=== PATIENT | male | born 1965 | race Caucasian/White ===

== ENCOUNTER → 2016-12-23 | Outpatient (CLI) | payer OTHER ==
[~2016-12-23] MED LIST: ACETAMINOPHEN PO; COMBIVENT RESPIM4 GM INH; LEVAQUIN PO; MEDROL DOSEPAK4 MG PO; MUCINEX DM ER1 EACH PO
--- NOTE | ~2016-12-23 | CT55 ---
[facility] A Service of [facility] & [facility] RADIOLOGY TEXT RESULTS PATIENT: JOSE DAY LOCATION: [facility] : 67 UNIT #: [id number] AGE: [address]: Owen Manning MD SEX: M ORDER DR: [id number] [facility]. [place], [place] [address] [id number] O MR#: [id number] Acc #: [id number] NAME: JOSE DAY : 1965 SEX: M STUDY DATE/TIME: 12/23/2016 09:18 UNIT: [facility] ROOM: STUDY DESCRIPTION: CT Chest W Con Attending Physician: Owen Manning M.D. Referring Physician: Owen Manning M.D. Ordering Physician: Owen Manning M.D. Primary Care Physician: Elizabeth Delarosa Aprn MEDICAL IMAGING REPORT This report is preliminary unless electronic signature is present EXAM CT chest with contrast 12/23/2016 09:18 hours HISTORY 51-year-old with diagnosis of right lung cancer. Patient has received interval radiation and chemotherapy for restaging. Observation for suspected malignant neoplasm. COMPARISON PET CT 08/28/[address] chest 08/21/[address] images were obtained from the lung apices through the adrenal glands with contrast. Sagittal and coronal reconstructions were performed. Contrast was Isovue-370 70 mL IV. Total exam DLP 776 mGy-cm. This CT exam was performed with one or more of the following radiation dose reduction techniques: automatic exposure control, adjustment of mA and/or kV according to patient size, and iterative reconstruction. FINDINGS Images through the thoracic inlet are normal. Images through the chest demonstrate significant interval improvement. The large right upper lobe lateral lung mass has decreased in size now measuring 4.0 x 3.4 x 3.9 cm, previously 4.3 x 3.9 x 5.4 cm. This abuts the lateral pleura and likely involves the pleura. There is resolution of the airspace change in the right middle lobe and right lower lobe which was likely postobstructive pneumonitis. There is marked decrease in the bulky adenopathy in the right paratracheal and right hilar region. Right paratracheal node now measures 2.7 x 2.3 cm, previously 5.1 x 3.5 cm. Right hilar mass now measures 1.8 x 1.9 cm, previously 4.2 x 4.8 cm. Right infrahilar node now measures 0.7 cm [facility] A Service of [facility] RADIOLOGY TEXT RESULTS PATIENT: JOSE DAY LOCATION: [facility] : 67 UNIT #: [id number] AGE: [address]: Owen Manning MD SEX: M ORDER DR: previously 2.7 cm. There is no pleural fluid. Limited views through the upper abdomen demonstrate no liver lesion. The left adrenal gland is normal. The low-density rim calcified right adrenal lesion is stable and felt likely benign. Right upper pole renal cyst is noted. Bone window images again demonstrate underlying scoliosis with endplate degenerative changes. There is no lytic or blastic lesions seen. IMPRESSION 1. Significant interval positive response to therapy. The peripheral mass in the right upper lobe now measures 4.0 x 3.3 x 3.9 cm, previously 4.3 x 3.9 x 5.4 cm. The previous bulky right paratracheal, right hilar adenopathy/mass have decreased significantly in size with resolution of the airspace changes from the right middle lobe and lower lobe with resolution of mass effect on the right mainstem bronchus. 2. No new pulmonary nodules or pleural effusions. 3. Stable rim calcified benign appearing right adrenal lesion. There is no liver or adrenal metastasis seen. 4. Right upper pole renal cyst. 5. Thoracic scoliosis with secondary endplate degenerative changes. No lytic or blastic bone lesions. Dictated by... Elena Mcdonald M.D. THIS IS AN ELECTRONICALLY VERIFIED REPORT Elena Mcdonald M.D. at 12/23/2016 2:29 PM Autumn TD: 12/23/2016 13:18 JOB #: [id number] MEDICAL IMAGING REPORT COPY
[2016-12-23 15:42] LABS: POC - CREATININE 0.75 mg/dL (0.64-1.27); POC - GFR >60.0 mL/min (>60)
== END | disposition home or self-care (01) ==
LOC: CCAT 08:44
PROVIDERS: Internal Medicine Medical Oncology
DX: C34.01 Malignant neoplasm of right main bronchus (principal); R91.8 Other nonspecific abnormal finding of lung field; E27.8 Other specified disorders of adrenal gland; N28.1 Cyst of kidney, acquired; M41.9 Scoliosis, unspecified; M47.814 Spondylosis without myelopathy or radiculopathy, thoracic region
CPT/HCPCS: 71260; 82565; Q9967

== ENCOUNTER → 2017-03-19 | Outpatient (CLI) | payer OTHER ==
--- NOTE | ~2017-03-19 | CT55 ---
[facility] A Service of [facility] & [facility] RADIOLOGY TEXT RESULTS PATIENT: JOSE DAY [facility] UNIT #: [id number] AGE: [address]: Owen Manning MD SEX: M ORDER DR: [id number] [place], [place] [address] [id number] O MR#: [id number] Acc #: [id number] NAME: JOSE DAY : 1965 SEX: M STUDY DATE/TIME: 03/19/2017 7:51 UNIT: [facility] ROOM: STUDY DESCRIPTION: CT Chest W Con Attending Physician: Owen Manning M.D. Ordering Physician: Owen Manning M.D. Primary Care Physician: Elizabeth Delarosa Aprn MEDICAL IMAGING REPORT This report is preliminary unless electronic signature is present EXAM CT chest with contrast Date: 03/19/2017 HISTORY Physician's order states malignant neoplasm of right main bronchus. Patient's history states followup lung cancer, no current complaints. Patient states last chemotherapy treatments and radiation therapy treatments November 2016. Observation metastatic disease. Restaging. COMPARISON CT chest with contrast 12/23/2016. PET/CT 01/21/2017. TECHNIQUE This CT exam was performed with one or more of the following radiation dose reduction techniques: automatic exposure control, adjustment of mA and/or kV according to patient size, and iterative reconstruction. FINDINGS Peripheral noncalcified right upper lobe lung mass abutting the lateral pleural margin is again seen. It measures about 3.9 x 3.5 cm in the axial plane compared 4.0 x 3.5 cm on the previous study. It appears slightly changed in morphology since prior exam in the axial plane. However, in the coronal plane, it is significantly diminished in size, now measuring 3 cm compared to 3.9 meters on 12/23/2016. There is new or increased dense alveolar disease change within the right upper lobe extending from the margin of the right upper lobe lung mass, toward the right hilum, and involving the superior segment right lower lobe. Findings are favored to represent changes of radiation pneumonitis STS. [facility] A Service of [facility] & [facility] RADIOLOGY TEXT RESULTS PATIENT: JOSE DAY LOCATION: [facility] : 67 UNIT #: [id number] AGE: [address]: Owen Manning MD SEX: M ORDER DR: or evolving fibrosis. Mediastinal adenopathy is slightly diminished. A right lower paratracheal liz aggregate measures 1.4 cm in thickness compared to 2 cm on 12/23/2016. 1.5 cm thickness right anterior hilar lymph node appears stable since prior exam. No new adenopathy is seen. Left lung is free of consolidation. No suspicious left lung nodules identified. There is chronic band-like scarring in the left lower lobe. No pericardial effusion or pleural effusion is seen. No supraclavicular or axillary adenopathy is evident. Left chest wall shruthi catheter extends to the SVC. Densely peripherally calcified 3.4 cm low-density right adrenal nodule is unchanged, thought to be benign. Complex cystic lesion in the right upper renal pole measuring 2.6 meters with eccentric calcification versus nonobstructing right renal stone, unchanged. Left adrenal gland and left kidney are unremarkable. Remainder included upper abdominal organs are normal. There is a mild S-shaped scoliotic curvature within the spine, but no suspicious osteolytic or osteoblastic abnormalities are identified. IMPRESSION 1. Findings consistent with positive response to therapy in comparison to 12/23/2016 examination. The right upper lobe lung mass has diminished in size, particularly in the coronal plane. The right paratracheal adenopathy has diminished, as well. 2. New or increasing dense airspace disease and special consolidative changes in the right upper lobe and within the superior segment right lower lobe, favored to represent postradiation pneumonitis or evolving fibrosis. 3. Stable benign appearing 3.4 cm peripherally calcified right adrenal nodule. 4. Stable 2.6 cm mildly complex right renal cystic lesion. 5. Thoracolumbar scoliosis. No suspicious osseous lesions. Dictated by... Kailey Madrid M.D. THIS IS AN ELECTRONICALLY VERIFIED REPORT Kailey Madrid M.D. at 03/19/2017 4:35 PM [facility]/dave TD: 03/19/2017 12:52 JOB #: [id number] [facility] A Service of [facility] RADIOLOGY TEXT RESULTS PATIENT: JOSE DAY LOCATION: [facility] : 67 UNIT #: [id number] AGE: [address]: Owen Manning MD SEX: M ORDER DR: MEDICAL IMAGING REPORT Page 1 of 1 COPY
[2017-03-19 08:26] LABS: POC - CREATININE 0.69 mg/dL (0.64-1.27); POC - GFR >60.0 mL/min (>60)
== END | disposition home or self-care (01) ==
LOC: CCAT 07:07
PROVIDERS: Internal Medicine Medical Oncology
DX: C34.01 Malignant neoplasm of right main bronchus (principal); R59.0 Localized enlarged lymph nodes; E27.8 Other specified disorders of adrenal gland; N28.89 Other specified disorders of kidney and ureter; M41.9 Scoliosis, unspecified; Z92.3 Personal history of irradiation; Z92.21 Personal history of antineoplastic chemotherapy
CPT/HCPCS: 71260; 82565; Q9967

== ENCOUNTER → 2017-06-22 | Outpatient (CLI) | payer OTHER ==
--- NOTE | ~2017-06-22 | CT55 ---
[facility] A Service of [facility] & [facility] RADIOLOGY TEXT RESULTS PATIENT: JOSE DAY LOCATION: [facility] : 67 UNIT #: [id number] AGE: [address]: Owen Manning MD SEX: M ORDER DR: [id number] [facility]. [place], [place] [address] [id number] O MR#: [id number] Acc #: [id number] NAME: JOSE DAY : 1965 SEX: M STUDY DATE/TIME: 06/22/2017 9:27 UNIT: [facility] ROOM: STUDY DESCRIPTION: CT Chest W Con Attending Physician: Owen Manning M.D. Referring Physician: Owen Manning M.D. Ordering Physician: Owen Manning M.D. Primary Care Physician: Willie SharmaPStellaRAnabel MEDICAL IMAGING REPORT This report is preliminary unless electronic signature is present EXAM CT chest. INDICATIONS Limited neoplasm of the right upper lobe. Restaging. Observation for metastatic disease. TECHNIQUE CT of the chest utilizing 70 mL Isovue-370 IV contrast. Coronal and sagittal reconstructions were obtained. This CT exam was performed with one or more of the following radiation dose reduction techniques: automatic exposure control, adjustment of mA and/or kV according to patient size, and iterative reconstruction. COMPARISON CT chest, 03/19/2017. FINDINGS There is an area of architectural distortion and bronchiectasis in the right upper lobe consistent with prior radiation therapy. A loculated low-attenuation fluid collection in the periphery of the right upper lobe has decreased from the prior exam. This area measures 2.9 x 3.8 cm compared to 3.9 x 3.5 cm previously. There is no new pulmonary opacities. Some soft tissue thickening along the right bronchus measures up to 1.2 cm compared to 1.4 cm previously. This should be closely followed. No new mediastinal or hilar lymph nodes. No pericardial or pleural effusion. There is no new pulmonary opacities. There is some linear atelectasis/scarring in the left lung base. Left hemidiaphragm is slightly elevated. Limited images of the upper abdomen were obtained. There is a peripherally calcified low-attenuation lesion in the right adrenal gland. [facility] A Service of [facility] & [facility] RADIOLOGY TEXT RESULTS PATIENT: JOSE DAY LOCATION: [facility] : 67 UNIT #: [id number] AGE: [address]: Owen Manning MD SEX: M ORDER DR: This measured up to 3.1 cm, unchanged. There is an exophytic presumed cyst off the superior pole right kidney. This is only partially visualized. No acute osseous abnormalities. IMPRESSION 1. No evidence of disease progression. 2. Area of architectural distortion and bronchiectasis in the right upper lobe is similar to the prior study and likely postradiation change. 3. Loculated fluid collection in the right upper lobe is decreased in size from the size from the prior study. 4. Soft tissue attenuation surrounding the right bronchus in the right hilar/mediastinal region is essentially unchanged. This should be closely followed. Dictated by... Christian Puente M.D. THIS IS AN ELECTRONICALLY VERIFIED REPORT Christian Puente M.D. at 06/23/2017 9:45 AM RAJEEV/marilee TD: 06/22/2017 21:57 JOB #: [id number] MEDICAL IMAGING REPORT Page 1 of 1 COPY
[2017-06-22 11:16] LABS: POC - CREATININE 0.78 mg/dL (0.64-1.27); POC - GFR >60.0 mL/min (>60)
== END | disposition home or self-care (01) ==
LOC: CCAT 08:17
PROVIDERS: Internal Medicine Medical Oncology
DX: C34.01 Malignant neoplasm of right main bronchus (principal); J47.9 Bronchiectasis, uncomplicated; Q67.8 Other congenital deformities of chest
CPT/HCPCS: 71260; 82565; Q9967